=== PATIENT | female | born 1985 | race Caucasian/White ===

== ENCOUNTER 2017-11-06 06:00 | Inpatient (IN) ==
[2017-11-06] MEDS ORDERED: MAG-AL + SIM ORAL LIQUID 30ml PO PRN (06:05)
[2017-11-06] MEDS ORDERED: METHYLERGONOVINE 0.2 MG/ML INJECTION IM PRN (06:05)
[2017-11-06] MEDS ORDERED: ACETAMINOPHEN 500 MG TABLET PO PRN ×2 (06:05→20:54)
[2017-11-06] MEDS ORDERED: CARBOPROST 250 MCG/ML INJECTION IM PRN (06:05)
[2017-11-06] MEDS ORDERED: LIDOCAINE 1% (10mg/ml) 2mL INJ PF SDV ID PRN (06:05)
[2017-11-06] MEDS ORDERED: OXYTOCIN DRIP 30 UNIT/500 ML ML IV PRN (06:05)
[2017-11-06] MEDS ORDERED: CALCIUM CARBONATE Chewable 500mg TABLET PO PRN ×2 (06:05→20:54)
--- OUTSIDE RECORDS SUMMARY | 2017-11-06 06:07 | External Medical Summary | Continuity of Care Document ---
:1985 Author Organization [facility] Address [address] [place], [place] [address] Phone Support Name Relationship Address Phone Santos Barrios spouse [address] [phone] [place] [address] Allergies, Adverse Reactions, Alerts Substance Reaction Severity Status No Known Drug Allergies Unknown Active Medications Medication Instructions Dosage Effective Dates Status Comments (start - stop) butalbital-acetami take 1 - 2 capsule Not Available - Active nophen-caffeine 50 by oral route every mg-300 mg-40 mg 6 hours as needed capsule not to exceed 6 capsules per 24hrs Claritin 10 mg take 1 tablet by 10 MG - Active tablet oral route every day ORAL - Active TABLET Prilosec OTC 20 mg take 1 Capsule by Not Available - Active tablet,delayed Oral route every release day Problems Condition Effective Dates (start - stop) Clinical Status Matern care for oth or susp poor fetl - grth, 2nd tri, unsp 19 weeks gestation of - Pap Smear Screening, Cervix - Encounter for suprvsn of normal - , first trimester 10 weeks gestation of - Oth related conditions, - second trimester Low lying placenta NOS or w/out - hemorrhage, second trimester 19 weeks gestation of - Oth related conditions, - first trimester 11 weeks gestation of - Encounter for suprvsn of normal - , first trimester Matern care for oth or susp poor fetl - grth, 2nd tri, unsp 15 weeks gestation of - OCP Surveillance - Active Procedures Procedure Date Ultrasound exam of preg uterus, complete Results Test Name Date and Time Measure Units Reference Range Abnormal Flag Comments Unknown Advance Directives Directive Yes / No Effective Date File Name Unknown Encounters Encounter Practice Location Reason(s) Diagnoses Date Provider Care Description For Visit Team Members Lloyd [place] Ot May-2 [place] In Womens related conditions, 3-201 Belén. Jessica SCHAFER second trimesterLow 7 700 PO Box lying placenta NOS Medical 1522, or w/out [facility], hemorrhage, second Yosvany Jansen, [email or web address] weeks 120, , gestation of [facility] [place], tel:[phone] , [place]. tel:[phone] Lloyd [place] Matern care for oth May- [place] In Womens Ultrasound or susp poor fetl 3-201 Belén. jax March, 2nd tri, 7 700 PO Box [email or web address] weeks Medical 1522, gestation of [facility], Yosvany Jansen, 120, , [facility] [place], tel:[phone] , [place]. tel:[phone] Lloyd [place] Matern care for oth Apr-2 [place] In Womens or susp poor fetl 4-201 Belén. jax March, 2nd tri, 7 700 PO Box [email or web address] weeks Medical 1522, gestation of [facility], Yosvany Jansen, 120, , [facility] [place], tel:[phone] , [place]. tel: [phone] Lloyd [place] Ot Juan-2 [place] In Womens related conditions, 6-201 Belén. Jessica SCHAFER, first [email or web address] 7 700 PO Box weeks gestation of Medical 1522, pregnancyEncounter [facility], for suprvsn of Yosvany Jansen, normal , 120, , first [facility] [place], tel:[phone] , [place]. tel:[phone] Lloyd [place] Pap Smear Juan-2 [place] In Womens Screening, 0-201 Belén. Jessica SCHAFER CervixAldo for 7 700 PO Box suprvsn of normal Medical 1522, , first [facility], [email or web address] weeks Yosvany Jansen, gestation of 120, , [facility] [place], tel:[phone] , [place]. tel: [phone] Lloyd [place] May- [place] In Womens 2-201 Belén. [facility], 4 700 PO [place] [facility] [address], [address] Desha[place], Yosvany [place], 120, [id number], [facility] [place], tel:[phone] , [place]. tel: [phone] [facility] Aug-0 [place] In Womens 1-201 Belén. [facility] PA, 1 700 PO Box Medical 1522, [address] [place], 120, [id number], [facility] [place], tel:[phone] , [place]. tel: [phone] Family History Family Member Diagnosis Age At Onset No family history of Thrombosis No family history of Ovarian Cancer Mother Hypertension Maternal Grandmother Hypertension Maternal Grandfather Hypertension Maternal Grandmother Melanoma No family history of Breast Cancer No family history of Uterine Cancer Paternal Grandmother Cancer, colon Paternal Grandfather Cancer, colon Immunizations Vaccine Date Status Comments Unknown Payers Payer name Insurance type Covered alliance party ID Authorization(s) [employer] Plan Of [place] - Medicaid MC [id number] Social History Type Description Quantity Date Captured Unknown Vital Signs Date / Height Weight BMI Pulse Blood Temperature Respiratory Body Head BMI Time: Rate Pressure Rate Surface Circumference percentile Area Unknown Chief Complaint And Reason For Visit Unknown Chief Complaint And Reason For Visit Reason For Referral Reason For Referral Unknown Plan Of Care Date Type Action Status Appointment Susanna Barrios BOOKED Future Order: Radiology Order Complete OB Ultrasound > 14 Ordered Weeks ([id number]) Date Type Problem Goal Intervention Status Start Date Unknown. History Of Present Illness Encounter Date Complaint History Of Present Illness This patient has no known history of present illness Functional Status Encounter Date Functional Assessment Cognitive Assessment Unknown Medications Administered Medication Instructions Dosage Effective Dates (start - stop) Status Comments Drug Treatment Unknown Instructions Date Instruction Additional Information exercise indications for ultrasound environmental / work hazards travel tobacco (ask, advise, assess, assist and arrange) alcohol illicit / recreational drugs use of any medications (including supplements, vitamins, herbs, OTC drugs) smoking counseling domestic violence seat belt use HIV and other routine tests risk factors identified by history anticipated course of care nutrition and weight gain counseling, special diet toxoplasmosis precautions (cats / raw meat) genetic testing new ob handbook Zika virus assessment & precautions dentist
--- OUTSIDE RECORDS SUMMARY | 2017-11-06 06:07 | External Medical Summary | Continuity of Care Document ---
:1985 Author Organization [facility] Address [address] [place], [place] [address] Phone Support Name Relationship Address Phone Santos Barrios spouse [address] [phone] [place] [address] Allergies, Adverse Reactions, Alerts Substance Reaction Severity [...] Effective Dates (start - stop) Clinical Status Pap Smear Screening, Cervix - Encounter for suprvsn of normal - , first trimester 10 weeks gestation of - Oth related conditions, - second trimester Low lying placenta NOS or w/out - hemorrhage, second trimester 19 weeks gestation of - Oth related conditions, - first trimester Encounter for suprvsn of normal - , first trimester 11 weeks gestation of - Matern care for oth or susp poor fetl - grth, 2nd tri, unsp 19 weeks gestation of - Matern care for oth or susp poor fetl - grth, 2nd tri, unsp 15 weeks gestation of - Low lying placenta NOS or w/out - hemorrhage, second trimester 23 weeks gestation of - Low Lying Placenta Nos Or W/out - Hemorrhage, Third Trimester 33 weeks gestation of - Low Lying Placenta Nos Or W/out - Hemorrhage, Third Trimester Encounter for suprvsn of normal - , third trimester 30 weeks gestation of - Encounter for suprvsn of normal - , second trimester 27 weeks gestation of - Encounter for suprvsn of normal - , third trimester 33 weeks gestation of - OCP Surveillance - Active Procedures Procedure Date Unknown Results Test Name Date and Time Measure Units Reference Range Abnormal Flag Comments Unknown Advance Directives Directive Yes / No Effective Date File Name Unknown Encounters Encounter Practice Location Reason(s) Diagnoses Date Provider Care Team Description For Visit Members Lloyd [place] Encounter for Nov-2 [place] In Womens suprvsn of normal 9-201 Belén. Jessica SCHAFER, , third 7 700 PO Box [email or web address] weeks Medical 1522, gestation of [facility] Yosvany Jansen, 120, [id number], [facility] [place], tel:[phone] , [place]. tel: [phone] [facility] Low Lying Nov-2 [place] In Womens Ultrasound Placenta Nos Or 9-201 Belén. Jessica SCHAFER, W/out Hemorrhage, 7 700 PO Box Third [email or web address] Medical 1522, weeks gestation [facility] Yosvany Jansen, 120, [id number], [facility] [place], tel:[phone] , [place]. tel: [phone] [facility] Nov-2 [place] In Womens 1-201 Belén. Jessica SCHAFER, 7 700 PO Box Medical 1522, [facility], Yosvany Jansen, 120, [id number], [facility] [place], tel:[phone] , [place]. tel: [phone] [facility] Low Lying Nov-0 [place] Referring In Womens Placenta Nos Or 7-201 Belén. Provider: Health PA, W/out Hemorrhage, 7 700 Belén [place] PO Box Third Medical [place], 700 1522, [facility]te [facility], r for suprvsn of Dr [facility] Dr GU, normal , 120, Yosvany 120, [id number], third [email or web address] Lucas [place], [place], tel: [phone]. , [place]. tel: tel: [phone] Lloyd Zavala Encounter for Oct-1 [place] Referring In Womens suprvsn of normal - Belén. Provider: Jessica SCHAFER, , second 7 700 Belén [place] PO Box [email or web address] weeks Medical [place], 700 1522, gestation of [facility], Dr [facility] Dr GU, 120, Yosvany 120, , [place], [place], tel:[phone]. , [place]. tel: tel: [phone] Lloyd Zavala Low lying Sep-1 [place] In Womens placenta NOS or Belén. Health HANH, w/out hemorrhage, 7 700 PO Box second Medical 1522, [email or web address] weeks [facility], gestation of Yosvany Jansen, 120, , [place], tel:[phone] , [place]. tel: [phone] Lloyd [place] Oth Aug-2 [place] In Womens related - Belén. Health HANH, conditions, 7 700 PO Box second Medical 1522, trimesterLow [facility], lying placenta Yosvany Jansen, NOS or w/out 120, , hemorrhage, [place], second [place], tel: [id number] weeks [phone] gestation of , [place]. tel: [phone] Lloyd [place] Matern care for Aug-2 [place] In Womens Ultrasound oth or susp poor - Belén. Health HANH, fetl grth, 2nd 7 700 PO Box tri, [email or web address] weeks Medical 1522, gestation of [facility], Yosvany Jansen, 120, , [place], [place], tel:[phone] , [place]. tel: [phone] Lloyd [place] Matern care for Yuriy-2 [place] In Womens oth or susp poor 4-201 Belén. Health HANH, fetl grth, 2nd 7 700 PO Box tri, [email or web address] weeks Medical 1522, gestation of [facility], Yosvany Jansen, 120, , [place], tel:[phone] , [place]. tel: [phone] Lloyd [place] Oth Juan-2 [place] In Womens related 6-201 Belén. Health HANH, conditions, first 7 700 PO Box trimesterEncounte Medical 1522, r for suprvsn of [facility], normal , Yosvany Jansen, first [email or web address] 120, [id number], weeks gestation [place], of [place], tel:[phone] , [place]. tel: [phone] Lloyd Z[place] Pap Smear Juna-2 [place] In Womens Screening, 0-201 Belén. Health HANH, CervixEncounter 7 700 PO Box for suprvsn of Medical 1522, normal , [facility], first [email or web address] Yosvany Jansen, weeks gestation 120, , of [facility] [place], tel:[phone] , [place]. tel: [phone] Lloyd Zav[place] Aug-1 [place] In Womens 2-201 Belén. Jessica SCHAFER, 4 700 PO Box Medical 15[address], [address] Ste [place], 120, [id number], [facility] [place], tel:[phone] , [place]. tel: [phone] Lloyd [place] Aug-0 [place] In Womens 1-201 Belén. Jessica SCHAFER, 1 700 PO Box Medical 1522, [address], Ste [place], 120, [id number], [facility] [place], tel:[phone] , [place]. tel: [phone] Family History Family Member Diagnosis Age At Onset No family history of Thrombosis No family history of Ovarian Cancer Mother Hypertension Maternal Grandmother Hypertension Maternal Grandfather Hypertension Maternal Grandmother Melanoma No family history of Breast Cancer No family history of Uterine Cancer Paternal Grandmother Cancer, colon Paternal Grandfather Cancer, colon Immunizations Vaccine Date Status Comments Tdap completed Source: New Immunization Record Influenza, injectable, completed Source: New Immunization Record quadrivalent, preservative free, 3 yrs or older Payers Payer name Insurance type Covered constitution party ID Authorization(s) [employer] [place] - Medicaid MC [id number] [employer] [place] - Medicaid MC [id number] [employer] [place] - Medicaid MC [id number] Social History Type Description Quantity Date Captured Unknown Vital Signs Date / Height Weight BMI Pulse Blood Temperature Respiratory Body Head BMI Time: Rate Pressure Rate Surface Circumference percentile Area Unknown Chief Complaint And Reason For Visit Unknown Chief Complaint And Reason For Visit Reason For Referral Reason For Referral Unknown Plan Of Care Date Type Action Status Appointment Susanna Barrios BOOKED Appointment Susanna Barrios BOOKED Appointment Susanna Barrios BOOKED Appointment Susanna Barrios BOOKED Appointment Susanna Barrios BOOKED Future Order: Radiology Order Complete OB Ultrasound > 14 Ordered Weeks ([id number]) Future Order: Radiology Order Ultrasound OB Follow-up ([id number]) Ordered Date Type Problem Goal Intervention Status Start Date Unknown. History Of Present Illness Encounter Date Complaint History Of Present Illness This patient has no known history of present illness Functional Status Encounter Date Functional Assessment Cognitive Assessment Unknown Medications Administered Medication Instructions Dosage Effective Dates (start - stop) Status Comments Drug Treatment Unknown Instructions Date Instruction Additional Information gestational glucose lab screening exercise indications for ultrasound environmental / work hazards travel tobacco (ask, advise, assess, assist and arrange) alcohol illicit / recreational drugs use of any medications (including supplements, vitamins, herbs, OTC drugs) smoking counseling domestic violence seat belt use genetic testing new ob handbook Zika virus assessment & precautions dentist HIV and other routine tests risk factors identified by history anticipated course of care nutrition and weight gain counseling, special diet toxoplasmosis precautions (cats / raw meat)
--- OUTSIDE RECORDS SUMMARY | 2017-11-06 06:08 | External Medical Summary | Continuity of Care Document ---
:1985 Author Organization [facility] Address [address] [place], [place] [address] Phone Support Name Relationship Address Phone Santos Barrios spouse [address] [phone] [place] [address] Allergies, Adverse Reactions, Alerts Substance Reaction Severity [...] Effective Dates (start - stop) Clinical Status Low Lying Placenta Nos Or W/out - Hemorrhage, Third Trimester 33 weeks gestation of - Pap Smear Screening, [...] tri, unsp 15 weeks gestation of - Maternal care for excess growth, - third trimester, unsp Encounter for suprvsn of normal - , third trimester 35 weeks gestation of - Low lying placenta NOS or w/out - hemorrhage, second trimester 23 weeks gestation of - Low Lying Placenta Nos Or W/out - Hemorrhage, Third Trimester Encounter for suprvsn of normal - , third trimester 30 weeks gestation of - 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 - complicating 36 weeks gestation of - Encounter for suprvsn of normal - , second trimester 27 weeks gestation of - Encounter for suprvsn of normal - , third trimester 33 weeks gestation of - OCP Surveillance - Active Procedures Procedure Date Ultrasnd preg uterus, flwup/repeat Results Test Name Date and Time Measure Units Reference Range Abnormal Flag Comments Unknown Advance Directives Directive Yes / No Effective Date File Name Unknown Encounters Encounter Practice Location Reason(s) Diagnoses Date Provider Care Team Description For Visit Members Lloyd Zavala Streptococcus B Dec-2 [place] In Womens carrier state 0-201 Belén. [facility], complicating 7 700 PO Box [email or web address] weeks Medical 1522, gestation of [facility], Yosvany Jansen [place], 120, [id number], [place], tel:[phone] , [place]. tel: [phone] Lloyd Zavala Maternal care for Dec-1 [place] In Womens excess 5-201 Belén. Health PA, growth, third 7 700 PO Box trimester, Medical 1522, unspEncounter for [facility], suprvsn of normal Yosvany Jansen, , third 120, [id number], [email or web address] weeks [place], gestation of [place], tel: [phone] , [place]. tel: [phone] Lloyd [place] Encounter for Nov-2 [place] In Womens suprvsn of normal 9-201 Belén. Health [facility], , third 7 700 PO Box [email or web address] weeks Medical 1522, gestation of [facility] Yosvany Jansen, 120, [id number], [place], tel: [phone] , [place]. tel: [phone] [facility] Low Lying Nov-2 [place] In Womens Ultrasound Placenta Nos Or 9-201 Belén. Health PA, W/out Hemorrhage, 7 700 PO Box Third [id number] Medical 1522, weeks gestation [facility], of Yosvany Jansen, 120, [id number], [place], tel:[phone] , [place]. tel: [phone] [facility] Nov-2 [place] In Womens 1-201 Belén. Health PA, 7 700 PO Box Medical 1522, [facility], Yosvany Jansen, 120, , [place], tel:[phone] , [place]. tel: [phone] [facility] Low Lying Nov-0 Qu[place] Referring In Womens Placenta Nos Or 7-201 Belén. Provider: Health PA, W/out Hemorrhage, 7 700 Belén Quiñonez PO Box Third Medical [place], 700 1522, TrimesterEncounte [facility], r for suprvsn of Yosvany Jansen [address] GU, normal , 120, Yosvany 120, [id number], third [email or web address] Lucas [place], [place] weeks gestation [place], [place], tel: of [phone]. , [place]. tel: tel: [phone] Associates [facility] Encounter for Oct-1 Qu[place] Referring In Womens suprvsn of normal 7-201 Belén. Provider: Health PA, , second 7 700 Belén Qu[place] PO Box [email or web address] weeks Medical [place], 700 1522, gestation of [facility], , [facility] Dr GU, 120, Yosvany 120, [id number], Lucas [place], [place], [place], tel:[phone]. , [place]. tel: tel: [phone] [facility] Low lying Sep-1 [place] In Womens placenta NOS or 9-201 Belén. Health PA, w/out hemorrhage, 7 700 PO Box second Medical 1522, [email or web address] weeks [facility], gestation of Yosvany Jansen, 120, , [place], tel: [phone] , [place]. tel: [phone] Associates [facility] Ot Aug-2 [place] In Womens related 3-201 Belén. Health PA, conditions, 7 700 PO Box second Medical 1522, trimesterLow [facility], lying placenta Yosvany Jansen, NOS or w/out 120, , hemorrhage, [place], second [place], tel: [email or web address] weeks gestation of , [place]. tel: [phone] [facility] Matern care for Aug-2 [place] In Womens Ultrasound oth or susp poor 3-201 Belén. Health HANH, fetl grth, 2nd 7 700 PO Box tri, [email or web address] weeks Medical 1522, gestation of [facility], Yosvany Jansen, 120, , [place], tel: [phone] , [place]. tel: [phone] [facility] Matern care for Yuriy-2 [place] In Womens oth or susp poor 4-201 Belén. Health HANH, fetl grth, 2nd 7 700 PO Box tri, [email or web address] weeks Medical 1522, gestation of [facility], Yosvany Jansen, 120, [id number], [place], tel:[phone] , [place]. tel: [phone] Associates [facility] Ot Juan-2 [place] In Womens related 6-201 Belén. Health PA, conditions, first 7 700 PO Box trimesterEncounte Medical 1522, r for suprvsn of [facility], normal , Yosvany Jansen, first [email or web address] 120, [id number], weeks gestation [place], [place] of [place], tel:[phone] , [place]. tel: [phone] Lloyd [place] Pap Smear Juan- Qu[place] In Womens Screening, 0-201 Belén. Health PA, CervixEncounter 7 700 PO Box for suprvsn of Medical 1522, normal , [facility], first [email or web address] , Yosvany GU, weeks gestation 120, , of [place], tel:[phone] , [place]. tel: [phone] Lloyd [place] May- Quiñonez In Womens 2-201 Belén. Health PA, 4 700 PO Box Medical 1522, [address] Deshaun, Y[place]vany [place], 120, [id number], [facility] [place], tel:[phone] , [place]. tel: [phone] Lloyd [place] May- Qiuñonez In Womens 1-201 Belén. Health HANH, 1 700 PO Box Medical 1522, [address] Deshaun, Yosvany [place], 120, [id number], [facility] [place], tel:[phone] , [place]. tel: [phone] Family History Family Member Diagnosis Age At [...] older Payers Payer name Insurance type Covered alliance party ID Authorization(s) [employer] [place] - Medicaid MC [id number] [employer] [place] - Medicaid MC [id number] [employer] [place] - Medicaid MC [id number] Social History Type Description Quantity Date Captured [...] Susanna Barrios BOOKED Future Order: Radiology Order Ultrasound OB Follow-up ([id number]) Ordered Future Order: Radiology Order Complete OB Ultrasound > 14 Ordered Weeks ([id number]) Date Type Problem Goal Intervention Status Start Date Unknown. History Of Present Illness Encounter Date Complaint History Of Present Illness This patient has no known history of present illness Functional Status Encounter Date Functional Assessment Cognitive Assessment Unknown Medications Administered Medication Instructions Dosage Effective Dates (start - stop) Status Comments Drug Treatment Unknown Instructions Date Instruction Additional Information labor signs group B strep screening gestational glucose lab screening exercise indications for [...]
--- OUTSIDE RECORDS SUMMARY | 2017-11-06 06:08 | External Medical Summary | Continuity of Care Document ---
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 - complicating Encounter for suprvsn of normal - , third trimester 38 weeks gestation of - Encounter for suprvsn of normal - , second trimester 27 weeks gestation of - Encounter for suprvsn of normal - , third trimester 37 weeks gestation of - Encounter for suprvsn of normal - , third trimester 33 weeks gestation of - OCP Surveillance - Active Procedures Procedure Date OB Visit No Charge Results Test Name Date and Time Measure Units Reference Range Abnormal Flag Comments Panel Description: STREPTOCOCCUS, GROUP B CULTURE STREPTOCOCCUS, GROUP SEE NOTE A STREPTOCOCCUS, GROUP B CULTURE B CULTURE 10:58:00 MICRO NUMBER: [id number] TEST STATUS: FINAL SPECIMEN SOURCE: VAGINAL/ANORECTAL SPECIMEN QUALITY: ADEQUATE RESULT: Group B Streptococcus isolated Beta-hemolytic Streptococci are predictably susceptible to penicillin and other beta-lactams. Susceptibility testing not routinely performed.REPORT COMMENT:FASTING:UNKNOWNTest performed at [employer] [id number] [place] [address]Nudbnacg: ISABELLE GUY DO,MPH Advance Directives Directive Yes / No Effective Date File Name Unknown Encounters Encounter Practice Location Reason(s) Diagnoses Date Provider Care Team Description For Visit Members Lloyd Lan Joaquim-0 [place] In Womens carrier state 2-201 [facility]. [facility], complicating 8 700 PO Box pregnancyEncounte Medical 1522, r for suprvsn of [facility], normal , Yosvany Jansen, third [email or web address] 120, [id number], weeks gestation [place], tel:[phone] , [place]. tel: [phone] [facility] [place] Encounter for Dec-2 [place] In Womens suprvsn of normal 9-201 Bel[facility]. [facility] HANH, , third 7 700 PO Box [email or web address] weeks Medical 1522, gestation of [facility], Yosvany Jansen, 120, , [place], tel:[phone] , [place]. tel: [phone] [facility] [place] Streptococcus B Dec-2 [place] In Womens carrier state 0-201 [facility]. [facility] HANH, complicating 7 700 PO Box weeks Medical 1522, gestation of [facility], Yosvany Jansen, 120, , [place], tel:[phone] , [place]. tel: [phone] [facility] [place] Maternal care for Dec-1 [place] In Womens excess 5-201 [facility]. [facility] HANH, growth, third 7 700 PO Box trimester, Medical 1522, unspEncounter for [facility], suprvsn of normal Y[place]vany Jansen, , third 120, , [email or web address] weeks [place], [place] gestation of [place], tel:[phone] , [place]. tel: [phone] [facility] [place] Encounter for Nov-2 [place] In Womens suprvsn of normal 9-201 [facility]. [facility] HANH, , third 7 700 PO Box [email or web address] weeks Medical 1522, gestation of [facility], Yosvany Jansen, 120, [id number], [place], tel:[phone] , [place]. tel:[phone] Lloyd [place] Low Lying Nov-2 [place] In Womens Ultrasound Placenta Nos Or 9-201 [facility]. [facility] HANH, W/out Hemorrhage, 7 700 PO Box Third [id number] Medical 1522, weeks gestation [facility], of [place]osvany Jansen, 120, [id number], [place], tel: [phone] , [place]. tel: [phone] Lloyd [place] Nov-2 [place] In Womens 1-201 [facility], 7 700 PO Box Medical 1522, [place], Yosvany Jansen, 120, [id number], [place], tel: [phone] , [place]. tel: [phone] [facility] [place] Low Lying Nov-0 [place] Referring In Womens Placenta Nos Or 7-201 Belén. Provider: Health PA, W/out Hemorrhage, 7 700 Belén [place] PO Box Third Medical K, 700 1522, TrimesterEncounte [facility], r for suprvsn of , [facility] [address] GU, normal , 120, Yosvany 120, [id number], third [place], weeks gestation RICCARDO, RICCARDO, tel: of [phone]. , [place]. tel: tel: [phone] [facility] [place] Encounter for Oct-1 [place] Referring In Womens suprvsn of normal 7-201 Belén. Provider: Health HANH, , second 7 700 Belén [place] PO Box [email or web address] weeks Medical K, 700 1522, gestation of [facility], Dr [facility] [address] GU, 120, Yosvany 120, [id number], [place], [place], tel: [phone]. , [place]. tel: tel: [phone] [facility] [place] Low lying Sep-1 [place] In Womens placenta NOS or 9-201 [facility]. [facility] HANH, w/out hemorrhage, 7 700 PO Box second Medical 1522, [email or web address] weeks [facility], gestation of Yosvany Jansen, 120, [id number], [place], tel:[phone] , [place]. tel: [phone] Lloyd [place] Oth Aug-2 [place] In Womens related 3-201 [facility]. [facility], conditions, 7 700 PO Box second Medical 1522, trimesterLow [facility], lying placenta Yosvany Jansen, NOS or w/out 120, , hemorrhage, [place], second [place], tel:+ [id number] weeks gestation of , [place]. tel: [phone] [facility] [place] Matern care for May-2 [place] In Womens Ultrasound oth or susp poor 3-201 [facility]. [facility], fetl grth, 2nd 7 700 PO Box tri, [email or web address] weeks Medical 1522, gestation of [facility], Yosvany Jansen, 120, , [place], [place], tel:[phone] , [place]. tel: [phone] [facility] [place] Matern care for Apr-2 [place] In Womens oth or susp poor 4-201 [facility]. [facility], fetl grth, 2nd 7 700 PO Box tri, [email or web address] weeks Medical 1522, gestation of [facility], Yosvany Jansen, 120, , [place], [place], tel:[phone] , [place]. tel: [phone] [facility] [place] Oth Juan-2 [place] In Womens related 6-201 [facility]. [facility], conditions, first 7 700 PO Box trimesterEncounte Medical 1522, r for suprvsn of [facility], normal , Yosvany Jansen, first [id number] 120, [id number], weeks gestation [place], of [place], tel:[phone] , [place]. tel: [phone] [facility] [place] Pap Smear Juan-2 [place] In Womens Screening, 0-201 [facility]. [facility], CervixEncounter 7 700 PO Box for suprvsn of Medical 1522, normal , [facility], first [id number] [place] Jansen, weeks gestation 120, [id number], of [place], tel:[phone] , [place]. tel: [phone] Lloyd [place] Aug-1 [place] In Womens 2-201 [facility]. [facility], 4 700 PO Box Medical 1522, [address] [address] Des[place], [place], 120, [id number], [facility] [place], tel:[phone] , [place]. tel: [phone] [facility] Quiñonez In Womens 1-201 Belén. [employer] [facility], 1 700 PO Box Medical 1522, [address] Desha[place], [place], 120, [id number], [facility] [place], tel:[phone] , [place]. tel: [phone] Family History Family Member Diagnosis Age At [...] older Payers Payer name Insurance type Covered democrat ID Authorization(s) [employer] [place] Medicaid MC [id number] [place] Medicaid MC [id number] [place] Medicaid MC [id number] Social History Type Description Quantity Date Captured Alcohol Use Details No Caffeine Use Details Unknown Tobacco Use Status Unknown Smoking Status Never smoker Vital Signs Date / Height Weight BMI Pulse Blood Temperature Respiratory Body Head BMI Time: Rate Pressure Rate Surface Circumference percentile Area 203.40 39.0 133/85 2017 lbs 7 mm[Hg] 10:31 kg/m AM eter (2) Chief Complaint And Reason For Visit Unknown Chief Complaint And Reason For Visit Reason For Referral Reason For Referral Unknown Plan Of Care Date Type Action Status Appointment Susanna Barrios BOOKED Appointment Susanna Barrios BOOKED Future Order: Radiology Order Complete OB Ultrasound > 14 Ordered Weeks ([id number]) Future Order: Radiology Order Ultrasound OB Follow-up ([id number]) Ordered Date Type Problem Goal Intervention Status [...]
--- OUTSIDE RECORDS SUMMARY | 2017-11-06 06:08 | External Medical Summary | Continuity of Care Document ---
:1983 Author Organization [facility] Address [address] [place], [place] [address] Phone Support Name Relationship Address Phone Santos Barrios spouse [address] [phone] [place] [address] Allergies, Adverse Reactions, Alerts Substance Reaction Severity [...] Team Description For Visit Members Lloyd [place] Maternal care for Sep- U[place] In Womens excess 5-201 [facility]. [facility] HANH, growth, third 7 700 PO Box trimester, Medical 1522, unspEncounter for [facility], [facility] normal [place] Jansen, , third 120, [id number], [id number] weeks [place], gestation of [place], tel:[phone] , [place]. tel: [phone] Lloyd [place] Encounter for Nov-2 [place] In Womens suprvsn of normal 9-201 Bel[facility]. Health HANH, , third 7 700 PO Box [email or web address] weeks Medical 1522, gestation of [facility], Yosvany Jansen, 120, [id number], [place], tel:[phone] , [place]. tel:[phone] Lloyd [place] Low Lying Nov-2 [place] In Womens Ultrasound Placenta Nos Or 9-201 Bel[facility]. Health HANH, W/out Hemorrhage, 7 700 PO Box Third [id number] Medical 1522, weeks gestation [facility], of Yosvany Jansen, 120, [id number], [place], tel: [phone] , [place]. tel: [phone] Lloyd [place] Nov-2 [place] In Womens 8-201 [facility]. [facility], 7 700 PO Box Medical 1522, [address] [place], [place], 120, [id number], [place], tel: [phone] , [place]. tel: [phone] Lloyd [place] Nov-2 [place] In Womens 1-201 [facility]. [facility], 7 700 PO Box Medical 1522, [address] [place] [place], 120, [id number], [place], tel:[phone] , [place]. tel: [phone] Lloyd [place] Low Lying Nov-0 [place] Referring In Womens Placenta Nos Or 7-201 Belén. Provider: Health HANH, W/out Hemorrhage, 7 700 Belén [place] PO Box Third Medical K, 700 1522, TrimesterEncounte [facility], r for suprvsn of , [facility] [address] GU, normal , 120, Yosvany 120, [id number], third [id number] [place], weeks gestation RICCARDO, RICCARDO, tel: of [phone]. , [place]. tel: tel: [phone] Lloyd [place] Encounter for Oct-1 [place] Referring In Womens suprvsn of normal 7-201 Belén. Provider: Health HANH, , second 7 700 Belén [place] PO Box [email or web address] weeks Medical K, 700 1522, gestation of [facility], , [facility] [address] GU, 120, Y[place]vany 120, [id number], [place], [place], tel: [phone]. , [place]. tel: tel: [phone] Lloyd [place] Low lying Sep-1 [place] In Womens placenta NOS or 9-201 [facility]. [facility] PA, w/out hemorrhage, 7 700 PO Box second Medical 1522, [id number] weeks [facility], gestation of Yosvany Jansen, 120, , [place], tel:[phone] , [place]. tel: [phone] [facility] [place] Ot Aug-2 [place] In Womens related 3-201 [facility]. [facility] PA, conditions, 7 700 PO Box second Medical 1522, trimesterLow [facility], lying placenta Yosvany Jansen, NOS or w/out 120, , hemorrhage, [place], second [place], tel:[phone] [email or web address] weeks gestation of , [place]. tel: [phone] [facility] [place] Matern care for Aug-2 [place] In Womens Ultrasound oth or susp poor 3-201 Bel[facility]. Health HANH, fetl grth, 2nd 7 700 PO Box tri, [email or web address] weeks Medical 1522, gestation of [facility], Yosvany Jansen, 120, , [place], tel:[phone] , [place]. tel: [phone] Lloyd [place] Matern care for Yuriy-2 [place] In Womens oth or susp poor 4-201 Bel[facility]. Health HANH, fetl grth, 2nd 7 700 PO Box tri, [email or web address] weeks Medical 1522, gestation of [facility], Yosvany Jansen, 120, , [place], [place], tel:[phone] , [place]. tel: [phone] [facility] [place] Ot Juan-2 [place] In Womens related 6-201 Bel[facility]. Health HANH, conditions, first 7 700 PO Box trimesterEncounte Medical 1522, r for suprvsn of [facility], normal , Y[place]any Jansen, first [id number] 120, [id number], weeks gestation [place], of [place], tel:[phone] , [place]. tel:[phone] Lloyd [place] Pap Smear Juan-2 [place] In Womens Screening, 0-201 Belén. Health HANH, CervixEncounter 7 700 PO Box for suprvsn of Medical 1522, normal , [facility], first [email or web address] [place] Jansen, weeks gestation 120, [id number], [facility] [place], tel:[phone] , [place]. tel: [phone] Lloyd [place] May- Qu[place] In Womens 2-201 Bel[facility]. [facility] PA, 4 700 PO Box Medical 1522, [address] [place], 120, [id number], [facility] [place], tel:[phone] , [place]. tel: [phone] [facility] Aug-0 [place] In Womens 1-201 Bel[facility]. [facility], 1 700 PO Box Medical 1522, [address] [place], 120, [id number], [facility] [place], tel:[phone] , [place]. tel: [phone] Family History Family Member Diagnosis Age At [...] [employer] Medicaid MC [id number] [place] Medicaid MC [id number] [place] Medicaid MC [id number] Social History Type Description Quantity Date Captured [...] Complete OB Ultrasound > 14 Ordered Weeks ([id number]) Future Order: Radiology Order Ultrasound OB Follow-up ([id number]) Ordered Date Type Problem Goal Intervention Status [...]
--- OUTSIDE RECORDS SUMMARY | 2017-11-06 06:08 | External Medical Summary | Continuity of Care Document ---
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 [facility], complicating 7 700 PO Box [id number] weeks Medical 1522, gestation of [facility], Yosvany Jansen, 120, , [facility], tel:[phone] , [place]. tel: [phone] Lloyd [place] Maternal care for Dec-1 [place] In Womens excess 5-201 Bel[facility]. [facility], growth, third 7 700 PO Box trimester, Medical 1522, unspEncounter for [facility], suprvsn of normal Y[place]vany Jansen, , third 120, [id number], [id number] weeks [facility] gestation of [place], tel:[phone] , [place]. tel: [phone] Lloyd [place] Encounter for Nov-2 [place] In Womens suprvsn of normal 9-201 [facility]. [facility], , third 7 700 PO Box [email or web address] weeks Medical 1522, gestation of [facility] Yosvany Jansen, 120, [id number], [place], tel: [phone] , [place]. tel: [phone] [facility] [place] Low Lying Nov-2 [place] In Womens Ultrasound Placenta Nos Or 9-201 Bel[facility]. [facility], W/out Hemorrhage, 7 700 PO Box Third [id number] Medical 1522, weeks gestation [facility], of Yosvany Jansen, 120, [id number], [place], tel:[phone] , [place]. tel: [phone] [facility] [place] Nov-2 [place] In Womens 1-201 [facility]. [facility], 7 700 PO Box Medical 1522, [facility], Yosvany Jansen, 120, , [place], [place], tel:[phone] , [place]. tel: [phone] [facility] [place] Low Lying Nov-0 [place] Referring In Womens Placenta Nos Or 7-201 Belén. Provider: Health PA, W/out Hemorrhage, 7 700 Belén [place] PO Box Third Medical K, 700 1522, TrimesterEncounte [facility], r for suprvsn of Yosvany J[address] [place] [address] GU, normal , 120, [place] 120, [id number], third [id number] [place], [place] weeks gestation RICCARDO, RICCARDO, tel: of [phone]. , [place]. tel: tel: [phone] [facility] [place] Encounter for Oct-1 [place] Referring In Womens suprvsn of normal 7-201 Belén. Provider: Health PA, , second 7 700 Belén Qu[place] PO Box [id number] weeks Medical K, 700 1522, gestation of [facility], , [facility] Dr GU, 120, [place] 120, [id number], [place], [place] RICCARDO, RICCARDO, tel:[phone]. , [place]. tel: tel: [phone] [facility] [place] Low lying Sep-1 [place] In Womens placenta NOS or 9-201 Bel[facility]. [facility] PA, w/out hemorrhage, 7 700 PO Box second Medical 1522, [email or web address] weeks [facility], gestation of Y[place] Jansen, 120, , [place], [place], tel: [phone] , [place]. tel: [phone] [facility] [place] Ot Aug-2 [place] In Womens related 3-201 Bel[facility]. Health PA, conditions, 7 700 PO Box second Medical 1522, trimesterLow [facility], lying placenta Y[place]any Jansen, NOS or w/out 120, , hemorrhage, [place], second [place], tel: [id number] weeks gestation of , [place]. tel: [phone] [facility] [place] Matern care for Aug-2 [place] In Womens Ultrasound oth or susp poor 3-201 Belné. Health HANH, fetl grth, 2nd 7 700 PO Box tri, [email or web address] weeks Medical 1522, gestation of [facility], Yosvany Jansen, 120, , [place], tel: [phone] , [place]. tel: [phone] [facility] [place] Matern care for Yuriy-2 [place] In Womens oth or susp poor 4-201 Belén. Health HANH, fetl grth, 2nd 7 700 PO Box tri, [email or web address] weeks Medical 1522, gestation of [facility], Yosvany Jansen, 120, [id number], [place], tel:[phone] , [place]. tel: [phone] [facility] [place] Ot Juan-2 [place] In Womens related 6-201 Belén. Health PA, conditions, first 7 700 PO Box trimesterEncounte Medical 1522, r for suprvsn of [facility], normal , [place] Jansen, first [email or web address] 120, [id number], weeks gestation [place], [place] of [place], tel:[phone] , [place]. tel: [phone] Lloyd [place] Pap Smear Mar- Qu[place] In Womens Screening, 0-201 Belén. Health PA, CervixEncounter 7 700 PO Box for suprvsn of Medical 1522, normal , [place], first [email or web address] , [place], weeks gestation 120, [id number], of [facility] [place], tel:[phone] , [place]. tel: [phone] Lloyd [place] May- Qu[place] In Womens 2-201 Belén. Health PA, 4 700 PO Box Medical 1522, [address] Des[place], [place], 120, [id number], [facility] [place], tel:[phone] , [place]. tel: [phone] Lloyd [place] May- Quiñonez In Womens 1-201 Belén. Jessica SCHAFER, 1 700 PO Box Medical 1522, [address] [place], [place], 120, [id number], [facility] [place], tel:[phone] , [place]. tel: [phone] Family History Family Member Diagnosis Age At [...] [employer] Medicaid MC [id number] [place] Medicaid MC [id number] [place] Medicaid MC [id number] Social History Type Description Quantity Date Captured Alcohol Use Details No Caffeine Use Details Unknown Tobacco Use Status Unknown Smoking Status Never smoker Vital Signs Date / Height Weight BMI Pulse Blood Temperature Respiratory Body Head BMI Time: Rate Pressure Rate Surface Circumference percentile Area 199.60 38.3 lbs 4 mm[Hg] 3:40 kg/m PM eter (2) Chief Complaint And Reason For Visit Unknown Chief Complaint And Reason For Visit Reason For Referral Reason For Referral Unknown Plan Of Care Date Type Action Status Appointment Susanna Barrios BOOKED Appointment Susanna Barrios BOOKED Appointment Susanna Barrios BOOKED Future Order: Radiology Order Complete OB Ultrasound > 14 Ordered Weeks ([id number]) Future Order: Radiology Order Ultrasound OB Follow-up ([id number]) Ordered Date Type Problem Goal Intervention Status [...]
--- OUTSIDE RECORDS SUMMARY | 2017-11-06 06:08 | External Medical Summary | Continuity of Care Document ---
:1985 Author Organization [facility] Address [address] [place], [place] [address] Phone Support Name Relationship Address Phone Santos Barrios spouse [address] [phone] [place] [address] Allergies, Adverse Reactions, Alerts Substance Reaction Severity [...] third trimester 30 weeks gestation of - Pap Smear Screening, [...] second trimester 23 weeks gestation of - Encounter for suprvsn of normal - , second trimester 27 weeks gestation of - OCP Surveillance - Active Procedures Procedure Date Immuniz admnin, 1 vac, sngl/combo 19 Yrs + TDAP VACCINE >7 IM OB Visit No Charge Results Test Name Date and Time Measure Units Reference Range Abnormal Flag Comments Unknown Advance Directives Directive Yes / No Effective Date File Name Unknown Encounters Encounter Practice Location Reason(s) Diagnoses Date Provider Care Team Description For Visit Members Lloyd [place] Nov-2 Qu[place] In Womens 1-201 Belén. Jessica SCHAFER, 7 700 [address], [place] [address] Deshaun, [facility] RICCARDO, 120, [id number], [place], tel: [phone] , [place]. tel: [phone] Lloyd [place] Low Lying Nov-0 Quiñonez Referring In Womens Placenta Nos Or 7-201 Belén. Provider: Jessica SCHAFER, W/out Hemorrhage, 7 700 Belén Quiñonez PO Box Third Medical K, 700 1522, [facility] Deshaun, for suprvsn of Dr, [facility] Dr GU, normal , 120, Yosvany 120, [id number], third [email or web address] Lucas [place], weeks gestation RICCARDO GU, tel: of [phone]. , [place]. tel: tel: [phone] Llyod [place] Encounter for Oct-1 Quiñone[place] Referring In Womens suprvsn of normal 7-201 Belén. Provider: Jessica SCHAFER, , second 7 700 Belén Qu[place]ñonez PO Box [email or web address] weeks Medical K, 700 1522, gestation of [place] Shankar [place], , [facility] Dr GU, 120, Yosvany 120, [id number], [place], [place], tel: [phone]. , [place]. tel: tel: [phone] Lloyd [place] Low lying Sep-1 [place] In Womens placenta NOS or 9- Belén. Health [place], w/out hemorrhage, 7 700 PO Box second Medical 1522, [email or web address] weeks [facility], gestation of Yosvany Jansen, 120, , [place], tel: [phone] , [place]. tel: [phone] Associates Lucas Ot Aug-2 [place] In Womens related 3- Belén. Health [place], conditions, 7 700 PO Box second Medical 1522, trimesterLow [facility], lying placenta Yosvany Jansen, NOS or w/out 120, , hemorrhage, [place], second [place], tel: [id number] weeks gestation of , [place]. tel: [phone] Lloyd [place] Matern care for Aug-2 [place] In Womens Ultrasound oth or susp poor 3-201 Belén. Health HANH, fetl grth, 2nd 7 700 PO Box tri, [email or web address] weeks Medical 1522, gestation of [facility], Yosvnay Jansen, 120, , [place], tel: [phone] , [place]. tel: [phone] Lloyd [place] Matern care for Yuriy-2 [place] In Womens oth or susp poor 4- Belén. Health [place], fetl grth, 2nd 7 700 PO Box tri, [email or web address] weeks Medical 1522, gestation of [facility], Yosvany Jansen, 120, , [place], [place], tel: [phone] , [place]. tel: [phone] Lloyd [place] Ot Juan-2 Qu[place] In Womens related 6- Belén. Health [place], conditions, first 7 700 PO Box trimesterEncounte Medical 1522, r for suprvsn of [facility], normal , Yosvany Jansen, first [email or web address] 120, [id number], weeks gestation [place], of [place], tel:[phone] , [place]. tel: [phone] Lloyd [place] Pap Smear Juan- Qu[place] In Womens Screening, 0-201 Belén. Health HANH, CervixEncounter 7 700 PO Box for suprvsn of Medical 1522, normal , [place] Deshaun, first [email or web address] , Yosvany GU, weeks gestation 120, [id number], of [place], [place], tel:[phone] , [place]. tel: [phone] Lloyd [place] May- Qu[place]ñone[place] In Womens 2-201 Belén. Health HANH, 4 700 [address] Medical [address], [place] [address] Deshaun, Yosvany GU, 120, [id number], [facility] [place], tel:[phone] , [place]. tel: [phone] Lloyd [place] May-0 Qu[place] In Womens 1-201 Belén. Jessica SCHAFER, 1 700 [address] Medical [address], [place] [address] Deshaun, Yovsany GU, 120, [id number], [facility] [place], tel:[phone] , [place]. tel: [phone] Family History Family Member Diagnosis Age At [...] older Payers Payer name Insurance type Covered republican ID Authorization(s) [employer] [place] - Medicaid MC [id number] [place] - Medicaid MC [id number] [place] [place] - Medicaid MC [id number] Social History Type Description Quantity Date Captured Alcohol Use Details No Caffeine Use Details coffee 1 cup per day Tobacco Use Status Never smoked tobacco Smoking Status Never smoker Vital Signs Date / Height Weight BMI Pulse Blood Temperature Respiratory Body Head BMI Time: Rate Pressure Rate Surface Circumference percentile Area 195.20 37.4 124/85 2017 lbs 9 mm[Hg] 11:28 kg/m AM eter (2) Chief Complaint And Reason For Visit Unknown Chief Complaint And Reason For Visit Reason For Referral Reason For Referral Unknown Plan Of Care Date Type Action Status Appointment Susanna Barrios BOOKED Appointment Susanna Barrios BOOKED Future Order: Radiology Order Complete OB Ultrasound > 14 Ordered Weeks (30117) Date Type Problem Goal Intervention Status Start [...]
--- OUTSIDE RECORDS SUMMARY | 2017-11-06 06:08 | External Medical Summary | Continuity of Care Document ---
:1985 Author Organization [id number] Address [address] [place], [place] [address] Phone Support Name Relationship Address Phone Santos Barrios spouse [address] [phone] [place] [address] Allergies, Adverse Reactions, Alerts Substance Reaction Severity [...] Dates (start - stop) Clinical Status Low lying placenta NOS or w/out - hemorrhage, second trimester 23 weeks gestation of - Pap Smear Screening, [...] for oth or susp poor fetl - grsilvia, 2nd tri, unsp 15 weeks gestation of - OCP Surveillance - Active Procedures Procedure Date OB Visit No Charge Results Test Name Date and Time Measure Units Reference Range Abnormal Flag Comments Unknown Advance Directives Directive Yes / No Effective Date File Name Unknown Encounters Encounter Practice Location Reason(s) Diagnoses Date Provider Care Description For Visit Team Members Associates Lucas Low lying placenta Jun- Quiñone[place] In Womens NOS or w/out 9-201 Belén. Jessica SCHAFER hemorrhage, second 7 700 PO Box [email or web address] weeks Medical 1522, gestation of [facility] Yosvany Jansen, 120, , [facility] [place], tel:[phone] , [place]. tel:[phone] Lloyd [place] Ot May-2 Quiñone[place] In Womens related conditions, 3- Belén. Jessica SCHAFER, second trimesterLow 7 700 PO Box lying placenta NOS Medical 1522, or w/out [facility], hemorrhage, second Yosvany Jansen, [email or web address] weeks 120, [id number], gestation of [facility] [place], tel:[phone] , [place]. tel: [phone] Lloyd [place] Matern care for oth May- Qu[place] In Womens Ultrasound or susp poor fetl 3-201 Belén. jax March, 2nd tri, 7 700 PO Box [email or web address] weeks Medical 1522, gestation of [facility], Yosvany Jansen, 120, [id number], [facility] [place], tel:[phone] , [place]. tel: [phone] Lloyd [place] Matern care for oth Apr- Qu[place]ñone[place] In Womens or susp poor fetl 4-201 Belén. jax March, 2nd tri, 7 700 PO Box [email or web address] weeks Medical 1522, gestation of [facility] Yosvany Jansen, 120, [id number], [facility] [place], tel:[phone] , [place]. tel: [phone] Lloyd [place] Ot Juan-2 Qu[place]ñone[place] In Womens related conditions, 6-201 Belén. Health [place], first 7 700 PO [facility], for suprvsn [facility], normal , Yosvany Jansen, first [email or web address] 120, [id number], weeks gestation of [place], [place], tel:[phone] , [place]. tel: [phone] Lloyd [place] Pap Smear Juan-2 Qu[place]ñone[place] In Womens Screening, 0-201 Belén. Health [place], CervixEncounter for 7 700 PO Box suprvsn of normal Medical 1522, , first Center [place], [email or web address] weeks Yosvany Jansen, gestation of 120, [id number], [facility] [place], tel:[phone] , [place]. tel: [phone] Lloyd [place] Aug- Quiñonez In Womens 2-201 Belén. Health HANH, 4 700 [address], [address] [place], 120, [id number], [facility] [place], tel:[phone] , [place]. tel: [phone] [facility] Aug-0 Quiñ[place] In Womens 1-201 Belén. Health [place], 1 700 [address], [address] [place], 120, [id number], [facility] [place], tel:[phone] , [place]. tel: [phone] Family History Family Member Diagnosis Age At Onset No family history of Thrombosis No family history of Ovarian Cancer Mother Hypertension Maternal Grandmother Hypertension Maternal Grandfather Hypertension Maternal Grandmother Melanoma No family history of Breast Cancer No family history of Uterine Cancer Paternal Grandmother Cancer, colon Paternal Grandfather Cancer, colon Immunizations Vaccine Date Status Comments Unknown Payers Payer name Insurance type Covered democrat ID Authorization(s) [employer] Plan [place] - Medicaid MC [id number] Social History Type Description Quantity Date Captured Alcohol Use Details No Caffeine Use Details Unknown Tobacco Use Status Unknown Smoking Status Never smoker Vital Signs Date / Height Weight BMI Pulse Blood Temperature Respiratory Body Head BMI Time: Rate Pressure Rate Surface Circumference percentile Area Sep-19 35.4 -2017 5 11:20 kg/m AM eter (2) 187.50 36.0 106/78 -2017 lbs 1 mm[Hg] 11:24 kg/m AM eter (2) Chief Complaint And Reason For Visit Unknown Chief Complaint And Reason For Visit Reason For Referral Reason For Referral Unknown Plan Of Care Date Type Action Status Appointment Susanna Barrios BOOKED Future Order: Radiology Order Complete OB Ultrasound > 14 Ordered Weeks ([id number]) Date Type Problem Goal Intervention Status Start [...]
--- OUTSIDE RECORDS SUMMARY | 2017-11-06 06:08 | External Medical Summary | Continuity of Care Document ---
:1983 Author Organization [facility] [facility] [facility] Address [address] [place], [place] [address] Phone Support Name Relationship Address Phone Santos Barrios spouse [address] [phone] [place] [address] Allergies, Adverse Reactions, Alerts Substance Reaction Severity Status No Known Drug Allergies Unknown Active Medications Medication Instructions Dosage Effective Dates Status Comments (start - stop) Claritin 10 mg tablet take 1 tablet by oral 10 MG - Active route every day ORAL TABLET - Active Problems Condition Effective Dates (start - stop) Clinical Status Matern care for oth or susp poor fetl - gr, 2nd tri, unsp 15 weeks gestation of - Pap Smear Screening, Cervix - Encounter for suprvsn of normal - , first trimester 10 weeks gestation of - Oth related conditions, - first trimester Encounter for suprvsn of normal - , first trimester 11 weeks gestation of - OCP Surveillance - Active Procedures Procedure Date OB Visit No Charge Results Test Name Date and Time Measure Units Reference Range Abnormal Flag Comments Unknown Advance Directives Directive Yes / No Effective Date File Name Unknown Encounters Encounter Practice Location Reason(s) Diagnoses Date Provider Care Description For Visit Team Members Associates Lucas Matern care for oth Quiñonez In Women or susp poor fetl 4-201 Belén. Health [place], grth, 2nd tri, 7 700 [address], [email or web address] weeks Medical [place], [place], gestation of [place] , Yosvany Jansen [place] 120, tel:[phone] [place], [id number] , [place]. tel: [phone] Lloyd [place] Oth Juan-2 Qu[place] In Womens related conditions, 6-201 Belén. Health [place], first 7 700 [address], [place], for suprvsn of [place] [id number], normal , Yosvany Jansen first [email or web address] 120, tel:[phone] weeks gestation of [facility] [address] [place], [id number] , [place]. tel: [phone] Lloyd [place] Pap Smear Juan-2 Qu[place] In Womens Screening, 0-201 Belén. Health HANH, CervixEncounter for 7 [address], suprvsn of normal [place], [place], , first Center [id number], [email or web address] weeks [address] [facility] gestation of 120, tel:[phone], [phone] , [place]. tel: [phone] Lloyd [place] Aug-1 Qu[place] In Womens 2-201 Belén. Health HANH, 4 700 [address], [place], [place], [place] [id number], , [facility] [place] 120, tel:[phone], [id number] , [place]. tel: [phone] Lloyd [place] Aug-0 Quiñone[place] In Womens 1-201 Belén. Health HANH, 1 700 [address], [place], [place], Center [id number], , [facility] 120, tel:[phone], [id number] , [place]. tel: [phone] Family History Family Member Diagnosis Age At Onset No family history of Thrombosis No family history of Ovarian Cancer Mother Hypertension Maternal Grandmother Hypertension Maternal Grandfather Hypertension Maternal Grandmother Melanoma No family history of Breast Cancer No family history of Uterine Cancer Paternal Grandmother Cancer, colon Paternal Grandfather Cancer, colon Immunizations Vaccine Date Status Comments Unknown Payers Payer name Insurance type Covered libertarian ID Authorization(s) [employer] Plan Of [place] - Medicaid MC [id number] Social History Type Description Quantity Date Captured Alcohol Use Details No Caffeine Use Details Unknown Tobacco Use Status Unknown Smoking Status Never smoker Vital Signs Date / Height Weight BMI Pulse Blood Temperature Respiratory Body Head BMI Time: Rate Pressure Rate Surface Circumference percentile Area 182.50 35.0 123/85 2017 lbs 5 mm[Hg] 4:40 kg/m PM eter (2) Chief Complaint And Reason For Visit Unknown Chief Complaint And Reason For Visit Reason For Referral Reason For Referral Unknown Plan Of Care Date Type Action Status Appointment Susanna Barrios BOOKED Appointment Susanna Barrios BOOKED Date Type Problem Goal Intervention Status Start [...] domestic violence seat belt use genetic testing HIV and other routine tests risk factors identified by history anticipated course of care nutrition and weight gain counseling, special diet toxoplasmosis precautions (cats / raw meat) new ob handbook Zika virus assessment & precautions dentist
--- OUTSIDE RECORDS SUMMARY | 2017-11-06 06:08 | External Medical Summary | Continuity of Care Document ---
:1983 Author Organization [facility] Address [address] [place], [place] [address] Phone Support Name Relationship Address Phone Santos Barrios spouse [address] [phone] [place] [address] Allergies, Adverse Reactions, Alerts Substance Reaction Severity [...] For Visit Team Members Lloyd [place] Ot Aug-2 Quiñ[place]z In Womens related conditions, 3-201 Belén. Jessica SCHAFER, second trimesterLow 7 700 PO Box lying placenta NOS Medical 1522, or w/out [facility], hemorrhage, second Yosvany Jansen, [email or web address] weeks 120, , gestation of [facility] [place], tel:[phone] , [place]. tel: [phone] Lloyd [place] Matern care for oth Aug-2 Qu[place] In Womens Ultrasound or susp poor fetl 3-201 Belén. jax March, 2nd tri, 7 700 PO Box [email or web address] weeks Medical 1522, gestation of [facility] Yosvany Jansen, 120, , [facility] [place], tel:[phone] , [place]. tel: [phone] Lloyd [place] Aug-2 Qu[place] In Womens 2-201 Belén. Jessica SCHAFER, 7 700 [address] Medical [address], [place] Deshaun, Yosvany Jansen, 120, , [facility] [place], tel:[phone] , [place]. tel: [phone] Lloyd [place] Matern care for oth Yuriy-2 Quiñone[place] In Womens or susp poor fetl 4-201 Belén. jax March, 2nd tri, 7 700 PO Box [email or web address] weeks Medical 1522, gestation of [facility] Yosvany Jansen, 120, , [facility] [place], tel:[phone] , [place]. tel: [phone] Lloyd [place] [facility] Juan-2 Quiñonez In Womens related conditions, 6-201 Belén. Jessica SCHAFER, first 7 700 PO Box weeks gestation of Medical 1522, [facility], for suprvsn of Yosvany Jansen, normal , 120, , first trimester [facility] [place], tel:[phone] , [place]. tel: [phone] Lloyd [place] Pap Smear Juan- Quiñonez In Womens Screening, 0-201 Belén. Health HANH, CervixEncounter for 7 700 PO Box suprvsn of normal Medical 1522, , first [facility], [email or web address] weeks , Yosvany GU, gestation of 120, , [facility] [place], tel: [phone] , [place]. tel: [phone] Lloyd [place] May- Quiñonez In Womens 2-201 Belén. Jessica SCHAFER, 4 700 PO [address] Medical [address], [address] Deshaun, Yosvany GU, 120, , [facility] [place], tel:[phone] , [place]. tel: [phone] Lloyd [place] May- Quiñonez In Womens 1-201 Belén. Jessica SCHAFER, 1 700 [address] Medical [address], [address] Deshaun, Yosvany GU, 120, [id number], [facility] [place], tel:[phone] , [place]. tel: [phone] Family History Family Member Diagnosis Age At [...] [place] Plan [place] - Medicaid [place] [id number] Social History Type Description Quantity Date Captured [...] Complete OB Ultrasound > 14 Ordered Weeks (32630) Date Type Problem Goal Intervention Status Start [...]
--- OUTSIDE RECORDS SUMMARY | 2017-11-06 06:08 | External Medical Summary | Continuity of Care Document ---
:1983 Author Organization [facility] Address [address] [place], [place] [address] Phone Support Name Relationship Address Phone Santos Barrios spouse [address] [phone] [place] [address] Allergies, Adverse Reactions, Alerts Substance Reaction Severity Status No Known Drug Allergies Unknown Active Medications Medication Instructions Dosage Effective Dates Status Comments (start - stop) butalbital-acetami take 1 - 2 capsule Not Available - Active nophen-caffeine 50 by oral route every mg-300 mg-40 mg 6 hours as needed capsule not to exceed 6 capsules per 24hrs Prilosec OTC 20 mg take 1 Capsule by Not Available - Active tablet,delayed Oral route every release day Claritin 10 mg take 1 tablet by 10 MG - Active tablet oral route every day ORAL - Active TABLET Problems Condition Effective Dates (start - stop) Clinical Status Oth related conditions, - second trimester Low lying placenta NOS or w/out - hemorrhage, second trimester 19 weeks gestation of - Pap Smear [...] Description For Visit Team Members Lloyd [place] Oth May-2 Quiñonez In Womens related conditions, 3-201 Belén. Jessica SCHAFER second trimesterLow 7 700 PO Box lying placenta NOS Medical 1522, or w/out [facility], second Yosvany Jansen, [email or web address] weeks 120, , gestation of [facility] [place], tel:[phone] , [place]. tel: [phone] Lloyd [place] Matern care for oth May- Qu[place] In Womens Ultrasound or susp poor fetl 3-201 Belén. jax March, 2nd tri, 7 700 PO Box [email or web address] weeks Medical 1522, gestation of [facility] Yosvany Jansen, 120, , [facility] [place], tel:[phone] , [place]. tel:[phone] Lloyd [place] Matern care for oth Apr-2 Quiñone[place] In Womens or susp poor fetl 4-201 Belén. jax March, 2nd tri, 7 700 PO Box [email or web address] weeks Medical 1522, gestation of [facility], Yosvany Jansen, 120, [id number], [facility] [place], tel:[phone] , [place]. tel: [phone] Lloyd [place] Ot Juan-2 Quiñonez In Womens related conditions, 6-201 Belén. Jessica SCHAFER first [email or web address] 7 700 PO Box weeks gestation of Medical 1522, [facility], for suprvsn of Yosvany Jansen, normal , 120, , first trimester [facility] [place], tel:[phone] , [place]. tel:[phone] Lloyd [place] Pap Smear Juan-2 Quiñonez In Womens Screening, 0-201 Belén. Jessica SCHAFER CervixEncgabe for 7 700 PO Box suprvsn of normal Medical 1522, , first Center [place], [email or web address] weeks Yosvany Jansen, gestation of 120, , [facility] [place], tel:[phone] , [place]. tel: [phone] Lloyd [place] Aug- Quiñonez In Womens 2-201 Belén. Health [place], 4 700 PO [address] Medical [address], [place] [address] [place], 120, , [facility] [place], tel:[phone] , [place]. tel: [phone] [facility] Aug-0 Quiñonez In Womens 1-201 Belén. Health [place], 1 700 PO Box Medical [address], [place] [address] [place] [place], 120, , [facility] [place], tel:+ [phone] , [place]. tel: [phone] Family History Family Member Diagnosis Age At [...] [employer] Plan [place] - Medicaid MC [id number] Social History Type Description Quantity Date Captured Alcohol Use Details No Caffeine Use Details Unknown Tobacco Use Status Unknown Smoking Status Never smoker Vital Signs Date / Height Weight BMI Pulse Blood Temperature Respiratory Body Head BMI Time: Rate Pressure Rate Surface Circumference percentile Area 35.0 -2017 5 3:53 kg/m PM eter (2) 184.60 35.4 115/76 -2017 lbs 5 mm[Hg] 3:57 kg/m PM eter (2) Chief Complaint And Reason For Visit Unknown Chief Complaint And Reason For Visit Reason For Referral Reason For Referral Unknown Plan Of Care Date Type Action Status Appointment Susanna Barrios BOOKED Future Order: Radiology Order Complete OB Ultrasound > 14 Ordered Weeks ([id number]) Date Type Problem Goal Intervention Status Start [...]
--- OUTSIDE RECORDS SUMMARY | 2017-11-06 06:09 | External Medical Summary | Continuity of Care Document ---
:1985 Author Organization [facility] Allergies Active Description Code Type Severity Reaction Onset Reported/ Identified Relationship Clinical to Patient Status Yes No Known 32777 3 N/A N/A Drug 0 Allergies Medications Medication Packaging Start Date Stop Date Route Dosage Sig Tablet 07/15/2015 AVIANE 6 TAKE ONE TABLET BY MOUTH ONCE A DAY Tablet 07/27/2016 AVIANE 7 TAKE ONE TABLET BY MOUTH DAILY Capsule 06/19/2017 BUTALBITAL-ACETA 7 take 1 - 2 MINOPHEN-CAFFE capsule by oral route every 6 hours as needed not to exceed 6 capsules per 24hrs Capsule 09/17/2017 BUTALBITAL-ACETA take 1 - 2 MINOPHEN-CAFFE capsule by oral route every 6 hours as needed not to exceed 6 capsules per 24hrs Problems Date Dx Attending Type Code Diagnosis Diagnosed By Coded 07/15/2015 Belén Quiñonez V25.41 Oral Contraceptives, Surveillance 07/15/2015 Belén Quiñonez V72.31 Routine Gynecological Examination 06/19/2017 Belén Quiñonez O36.5920 Matern care for oth or susp poor fetl grth, 2nd tri, unsp 06/19/2017 Belén Quiñonez Z3A.19 19 weeks gestation of 08/13/2017 W V22.1 Supervision Of , Multigravida 09/25/2017 Belén Quiñonez O44.43 Low Lying Placenta Nos Or W/out Hemorrhage, Third Trimester 09/25/2017 Belén Quiñonez Z3A.33 33 weeks gestation of Procedures Code Description [place] [address] Venpnctr 05/28/2011 fngr/heel/ear stick routne 08212 OB Visit No 05/28/2011 Charge 34309 Obstetric 05/28/2011 profile 27951 HIV-1/HIV-2, 05/28/2011 single assay 48162 Cult, bactr, 05/28/2011 isaiah colonycnt, urine 11223 Cult, bactr, 05/28/2011 ident isolate, urine 96047 Infct 05/28/2011 antign, chlamydia trac, ampl 70473 Neisseria 05/28/2011 Gonorrhea, Amplified DNA 88722 Specimen 05/28/2011 handling/transport 65766 Ultrasnd 06/19/2017 exam of preg uterus, compl 82578 Immuniz 09/03/2017 admnin, 1 vac, sngl/combo 49992 TDAP VACCINE 09/03/2017 >7 IM 74877 Ultrasnd 09/25/2017 preg uterus, flwup/repeat Results There is no data. Encounters ACCT No. Visit Discharge Status Pt. Type Provider Facility Loc./Unit Complaint Date/Time [id number] 10/29/2017 10/29/2017 [facility] Out[facility] Quiñonez, 09:45:00 23:59:59 Belén Ghada [id number] 10/25/2017 10/25/2017 [facility] Outpatient Quñionez, 09:00:00 23:59:59 Belén Urrutia [id number] 10/16/2017 10/16/2017 [facility] Outpatient Qui[facility]onez, 08:30:00 23:59:59 Belén Ghada [id number] 10/11/2017 10/11/2017 C[facility] Outpatient Quiñonez, 10:15:00 23:59:59 Belén Ghada [id number] 09/25/2017 09/25/2017 CLS Outpatient Quiñonez, 15:30:00 23:59:59 Belén K [id number] 09/25/2017 09/25/2017 CLS Outpatient Quiñonez, 15:15:00 23:59:59 Belén Urrutia [id number] 09/24/2017 09/24/2017 CLS Outpatient Quiñonez, 09:36:00 23:59:59 Belén hGada [id number] 09/17/2017 09/17/2017 CLS Outpatient Quiñonez, 11:59:00 23:59:59 Belén Urrutia [id number] 09/03/2017 09/03/2017 CLS Outpatient Quiñonez, 11:15:00 23:59:59 Belén Urrutia [id number] 08/13/2017 08/13/2017 CLS Outpatient Quiñonez, 11:05:00 23:59:59 Belén Urrutia [id number] 07/16/2017 07/16/2017 CLS Outpatient Quiñonez, 11:15:00 23:59:59 Belén Urrutia [id number] 06/19/2017 06/19/2017 CLS Outpatient Quiñonez, 15:45:00 23:59:59 Belén Urrutia [id number] 06/19/2017 06/19/2017 CLS Outpatient Quiñonez, 15:15:00 23:59:59 Belén Urrutia [id number] 06/18/2017 06/18/2017 CLS Outpatient Quiñonez, 10:44:00 23:59:59 Belén Urrutia [id number] 05/20/2017 05/20/2017 CLS Outpatient Quiñonez, 16:15:00 23:59:59 Belén Urrutia [id number] 04/22/2017 04/22/2017 CLS Outpatient Quiñonez, 16:00:00 23:59:59 Belén Urrutia [id number] 04/22/2017 04/22/2017 CLS Outpatient Quiñonez, 15:15:00 23:59:59 Belén Urrutia [id number] 04/16/2017 04/16/2017 CLS Outpatient Quiñonez, 10:00:00 23:59:59 Belén Urrutia [id number] 07/27/2016 07/27/2016 CLS Outpatient Quiñonez, 09:32:00 23:59:59 Belén Urrutia [id number] 07/18/2015 07/18/2015 CLS Outpatient José Miguel, 14:08:00 23:59:59 Christopher Bowen [id number] 07/15/2015 07/15/2015 CLS Outpatient Quiñonez, 10:00:00 23:59:59 Belén Urrutia [id number] 05/28/2011 Document 14:00:00 Registration
[2017-11-06] MEDS: LR 1,000 ML IV PRN ×4 (06:41→18:57)
[2017-11-06] MEDS: D5LR 1,000 ML IV PRN ×2 (06:42→16:17)
[2017-11-06 06:53] VITALS: BMI 37.2
[2017-11-06] MEDS ORDERED: AMPICILLIN 2 GM in NS 100 ML IV ONE (07:00)
--- NOTE | 2017-11-06 08:44 | Anesthesia Preoperative Report ---
Anesthesia Epidural/Spinal Rec - Date and Time Date: 11/06/17 Procedure: Labor Epidural - Vital Signs Vital Signs: Temperature 97.8 F 11/06/17 06:30 Pulse Rate 100 11/06/17 06:30 Respiratory Rate 20 11/06/17 06:30 Blood Pressure 122/85 11/06/17 06:30 Pulse Oximetry 99 11/06/17 06:30 /Para: P:2 - Medictaions & Allergies Inpatient Medications: Current Medications Acetaminophen (Tylenol) 500 - 1,000 mg PO Q4H PRN PRN Reason: Pain Al Hydroxide/Mg Hydroxide (Maalox Plus) 30 ml PO Q3H PRN PRN Reason: Indigestion Calcium Carbonate (Tums) 500 - 1,000 mg PO Q2H PRN PRN Reason: Indigestion Carboprost Tromethamine (Hemabate) 250 mcg IM O PRN PRN Reason: .Downtime Ampicillin Sodium 1 gm/ Sodium (Chloride) 100 mls @ 200 mls/hr IV Q4H LLOYD Dextrose/Lactated Ringer's (Dextrose 5%-Lactated Ringers) 1,000 mls @ 125 mls/ hr IV .Q8H PRN PRN Reason: Labor Last Admin: 11/06/17 06:42 Dose: 125 mls/hr Lactated Ringer's (Lactated Ringers) 1,000 mls @ 999 mls/hr IV .Q1H1M PRN Last Admin: 11/06/17 06:41 Dose: 999 mls/hr Oxytocin (Pitocin Drip) 30 unit in 500 mls @ 2 mls/hr IV .Q24H PRN; Protocol PRN Reason: Induction/Augmentation Last Admin: 11/06/17 06:42 Dose: 2 mls/hr Lidocaine HCl (Xylocaine-Mpf 1% Vial) 0.2 mg ID O PRN PRN Reason: IV Start Methylergonovine Maleate (Methergine) 0.2 mg IM O PRN Misoprostol (Cytotec) 800 mcg VT ONCE PRN Allergies/Adverse Reactions: Allergies Allergy/AdvReac Type Severity Reaction Status Date / Time No Known Drug Allergies Allergy Unknown Verified 12/29/16 18:17 - Home Medications Home Medications: Home Medications Medication Instructions Recorded Confirmed Type Vits W-Ca,Fe,Fa(<1MG) 1 tab PO #0 12/19/11 History ( Vitamins) Loratadine/Pseudoephedrine 1 tab PO BID #40 tab 12/29/16 History [Claritin-D 12 Hour Tablet] Txjced-Fajtbcgb-Kjgw 50-300-40 10/24/17 History - Medical History Respiratory: DENIES: Asthma Cardiovascular: DENIES: Angina Gastrointestional: Reports: Gastroesophageal Reflux Disease (well controlled with meds) Other History: Reports: Now - Surgical History Reproductive Surgery/Treatment: DENIES: Section Anesthesia Reactions: None Hx Family Anesthesia Reaction: No History of Motion Sickness: No - Social History Smoking Status: Never smoker Second Hand Exposure: No Substance Use Type: does not use Alcohol Intake Frequency: does not drink - Pertinent Findings Lab Data: CBC and BMP 11/06/17 06:20 - Physical Exam Respiratory Exam: lungs clear, bilateral breath sounds equal Cardiovascular Exam: regular rate and rhythm - Airway Assessment Mallampati Score: II TMD: 3 Fingerbreadths Neck Extension: good Overall Assessment: may be difficult mask vent, may be difficult intubation - ASA ASA Score: 2 - Discussion Discussion: Discussed risks/options/alternatives of anesthesia and questions answered. Patient consents. Nursing pain assessment noted. Anesthesia Discussion: spouse, parent (mother) Attestation Statement: Prior to the delivery of any anesthetic medication, I examined the patient, developed the plan, obtained the patient's consent and discussed the risk and benefits of the procedure with the patient/guardian.
[2017-11-06] MEDS ORDERED: NALOXONE 0.4 MG/ML INJECTION IVP PRN (09:55)
[2017-11-06] MEDS ORDERED: ONDANSETRON 4 MG/2 ML INJECTION IVP PRN (09:55)
[2017-11-06] MEDS ORDERED: ROPIVACAINE 1% 10MG/ML INJ 200 MG, SUFentanil 50 MCG in NS 100 ML EPI PRN (09:55)
[2017-11-06] MEDS ORDERED: DiphenhydrAMINE 50 MG/ML INJECTION IVP PRN (09:55)
[2017-11-06] MEDS: AMPICILLIN 1 GM in NS 100 ML IV SCH ×2 (11:25→15:23)
[2017-11-06] MEDS ORDERED: CITRIC ACID/SODIUM CITRATE 30ml PO ONE (18:56)
[2017-11-06] MEDS ORDERED: FAMOTIDINE PB 20 MG/50 ML BAG IV ONE (18:56)
[2017-11-06] MEDS ORDERED: CEFAZOLIN PREMIX (MC ONLY) 2 GM/50 ML BAG IV ONE (18:56)
[2017-11-06] MEDS ORDERED: AZITHROMYCIN IV 500 MG in NS 250ml 250 ML IV SCH (19:00)
[2017-11-06] MEDS ORDERED: LIDOCAINE 2%/EPI 1:200,000 20ml SDV PF ONE (19:03)
[2017-11-06] MEDS ORDERED: ONDANSETRON 4 MG/2 ML INJECTION ONE (19:03)
[2017-11-06] MEDS ORDERED: SODIUM BICARBONATE 8.4% (50mEq/50ml) VIAL IV ONE (19:03)
[2017-11-06] MEDS ORDERED: MORPHINE SULFATE PF 5mg/10ml INJ (Duramorph) ONE (19:04)
[2017-11-06] MEDS ORDERED: TRANEXAMIC ACID 1,000 MG in NS 100 ML IV ONE ×2 (19:44→20:49)
[2017-11-06] MEDS ORDERED: OXYTOCIN BOLUS BAG 30 UNIT/500 ML ML IV SCH ×2 (20:08→21:00)
[2017-11-06] MEDS ORDERED: MIDAZOLAM 2mg/2ml INJECTION ONE (20:12)
[2017-11-06] MEDS ORDERED: SIMETHICONE 80 MG CHEWABLE TABLET PO PRN (20:54)
[2017-11-06] MEDS ORDERED: HYDROCORTISONE 2.5% CREAM 30gm RECTALLY PRN (20:54)
[2017-11-06] MEDS ORDERED: DiphenhydrAMINE 25 MG CAPSULE PO PRN (20:54)
[2017-11-06] MEDS ORDERED: OXYTOCIN DRIP 30 UNIT/500 ML ML IV SCH (21:00)
[2017-11-06] MEDS ORDERED: SALINE FLUSH 10ml SYRINGE ONE (21:01)
[2017-11-06] MEDS: D5LR 1,000 ML IV SCH (21:17)
[2017-11-06] MEDS: NS 1,000 ML IV SCH (21:30)
[2017-11-06] MEDS: SIMETHICONE 80 MG CHEWABLE TABLET PO SCH (23:20)
[2017-11-06] MEDS ORDERED: NALBUPHINE 10 MG/ML INJECTION IVP PRN (23:42)
[2017-11-06] MEDS ORDERED: NALOXONE 2 MG/2 ML INJECTION PFS IVP PRN (23:42)
[2017-11-06] MEDS ORDERED: METOCLOPRAMIDE 10mg/2ml INJECTION IVP PRN (23:42)
[2017-11-06] MEDS: IBUPROFEN 800 MG TABLET PO PRN (23:54)
[2017-11-06] MEDS: ONDANSETRON 4 MG/2 ML INJECTION IVP PRN (23:59)
[2017-11-07] MEDS: NS 1,000 ML IV SCH (00:10)
[2017-11-07] MEDS: AMPICILLIN 1 GM in NS 100 ML IV SCH (01:31)
[2017-11-07] MEDS ORDERED: LR 1,000 ML IV SCH (04:15)
[2017-11-07] MEDS: D5LR 1,000 ML IV SCH ×4 (04:34→17:42)
[2017-11-07] MEDS: ONDANSETRON 4 MG/2 ML INJECTION IVP PRN (07:46)
--- NOTE | 2017-11-07 08:02 | OB/GYN Progress Note ---
OB-PP Progress Note - General PPD1 Maternal Group B Strep: Positive Maternal blood type: O+ Maternal Rubella Status: Immune - Subjective Date: 11/07/17 Lochia: Minimal Pain: controlled Voiding: restrepo still in place Nausea or Vomiting Present: Yes (Improved) - Objective Vital Signs: Last Vital Signs Temp 97.8 F 11/07/17 05:40 Pulse 81 11/07/17 05:40 Resp 16 11/07/17 05:40 BP 112/74 11/07/17 05:40 Pulse Ox 100 11/07/17 05:40 Urine Output: adequate (30 ml/hr) General: alert and oriented (Pale) Abdomen: fundus firm, non-tender, soft, distended (Mildly) Incision: clean, dry, intact Extremities: non-tender Laboratory: Laboratory Results - last 24 hr 11/06/17 11/06/17 11/06/17 06:20 20:59 21:13 WBC 17.3 H D RBC 2.49 L Hgb 7.0 L D Hct 22.2 L D MCV 89.2 MCH 28.1 MCHC 31.5 RDW Std Deviation 46.4 Plt Count 155 MPV 11.4 Blood Type O Positive Antibody Screen Negative Crossmatch (AHG) See Detail Blood Product Request 1 unit pc issued 11/07/17 11/07/17 01:07 07:06 WBC 20.1 H 19.4 H RBC 3.24 L 3.14 L Hgb 9.3 L D 8.8 L Hct 28.0 L D 27.3 L MCV 86.4 86.9 MCH 28.7 28.0 MCHC 33.2 32.2 RDW Std Deviation 44.4 45.2 Plt Count 194 188 MPV 11.4 11.7 Blood Type Antibody Screen Crossmatch (AHG) Blood Product Request - Assessment Assessment: Primary C/S, PP Hemorrhage (s/p 1 unit of RBCs) - Plan Due the extensive suturing of the right incision/broad ligament, we will evaluate her right ureter to rule out an injury. Dr. Brothers requested a CT with IV contrast. Questions answered.
[2017-11-07] MEDS: IBUPROFEN 800 MG TABLET PO PRN ×2 (08:13→16:27)
[2017-11-07] MEDS ORDERED: IOHEXOL 300mg/ml 100ml INJECTION ONE (08:27)
[2017-11-07] MEDS ORDERED: NS 100 ML ONE (08:27)
[2017-11-07] MEDS ORDERED: SALINE FLUSH 10ml SYRINGE ONE (08:27)
[2017-11-07] MEDS: DOCUSATE CALCIUM 240 MG CAPSULE PO SCH (09:00)
--- NOTE | 2017-11-07 10:31 | CT Scan Report ---
Indication: r/o R ureter injury from extensive suturing at c/s PROCEDURE: CT renal wo/w con: Encounter: Initial Comparison: None Technique: Axial CT images were performed through the abdomen and pelvis before and after the administration of intravenous contrast. Delayed postcontrast images were also performed. Coronal and sagittal 2-dimensional reformats. Automated Exposure Control and Iterative Reconstruction dose reducing techniques were utilized. Contrast: Omnipaque 300 100 mL Findings: Mild atelectasis in both lung bases. Noncontrast images of the kidneys show no renal or ureteral stone disease. There is a markedly enlarged post gravid uterus seen with a few foci of gas in the lower uterine segment. There is gas seen in the anterior pelvic soft tissues and rectus sheaths bilaterally consistent with the recent section. There is a small amount of free pelvic fluid and hemorrhage also present. The bladder is decompressed with a Pal catheter. Postcontrast images show normal enhancement of the liver. No bile duct dilatation. The gallbladder is unremarkable. The spleen, pancreas and adrenal glands are within normal limits. The kidneys enhance normally. No hydronephrosis or renal mass. No evidence of a bowel obstruction.. Bone windows show no acute findings. Delayed postcontrast images show symmetric excretion of contrast from both renal collecting systems. There is no extravasation of contrast. The proximal to mid ureters are well-opacified bilaterally without evidence of ureteral leak. The ureters are compressed by the enlarged uterus and there is minimal visible contrast present within the distal portion of both ureters. However there is contrast material seen within the bladder and a repeat delayed scan showed progressive filling of the bladder with no evidence of contrast extravasation. Impression: 1. No CT evidence of ureteral obstruction or leak. 2. Postoperative changes from recent section. 3. Bibasilar atelectasis. .
--- NOTE | 2017-11-07 11:01 | Anesthesia Postoperative Note ---
- Date and Time Date: 11/07/17 Time: 11:00 - Status Patient Participated in Evaluation: Patient Participated in Person Vital Signs: Temperature 97.8 F 11/07/17 05:40 Pulse Rate 81 11/07/17 05:40 Respiratory Rate 16 11/07/17 05:40 Blood Pressure 112/74 11/07/17 05:40 Pulse Oximetry 100 11/07/17 05:40 Respiratory Function: Airway Patent Mental Status: Alert and Oriented Pain Intensity: 3 Hydration: Nausea Complications During Recover: None Apparent - Follow-Up Instructions Instructions: Per Surgeon
[2017-11-07] MEDS: SIMETHICONE 80 MG CHEWABLE TABLET PO SCH ×3 (12:37→18:43)
[2017-11-07] MEDS: HYDROCODONE/APAP 5mg/325mg TABLET PO PRN ×3 (12:44→20:12)
--- NOTE | 2017-11-07 12:47 | Progress Note ---
OB PP Progress Note Free Text - Date Date: 11/07/17 - Progress Note Progress Note: Starting to feel better. The nausea resolved and she's keeping some PO down. Her UOP has increased substantially. Her CT showed normal filling of both ureters into the bladder. There was suggestion of atelectasis, so she will start a spirometer. Start Fe for the anemia. DC the restrepo when she is able to ambulate.
--- NOTE | 2017-11-07 14:30 | Operative Note ---
DATE OF PROCEDURE 11/06/2017 PREOPERATIVE DIAGNOSES 1. 32-year-old 4, para 2 at 39 weeks 3 days gestational age. 2. Failure to progress. POSTOPERATIVE DIAGNOSES 1. 32-year-old 4, para 2 at 39 weeks 3 days gestational age. 2. Failure to progress. 3. hemorrhage. 4. Possible endometriosis. PROCEDURE Primary low transverse section. SURGEON Dr. Belén Quiñonez QUILL WORKER Dr. Ermelinda King ANESTHESIA Epidural by Michael White CRNA COMPLICATIONS None. EBL 2000 mL. FINDINGS Viable female infant, cephalic OT position, clear fluids, Apgars 8/9, weight 3738 g, name "[place]." The superior and posterior uterus had a possible endometriosis appearance to it. Normal-appearing adnexa. INDICATIONS Susanna was brought in for a Pitocin induction due to suspected macrosomia. She was started on antibiotics for her group B strep. Her membranes were ruptured artificially, returning clear fluids. She received an epidural. When her cervix was not changing well I placed an IUPC to document adequate contractions. She progressed much slower over the course of the day than what I was expecting for a G4, P2. Baby never descended past 0 station. Due to the prolonged labor and concern about turning into a shoulder dystocia we discussed continuing the induction versus having a primary . She was exhausted at this point and desired a . PROCEDURE The patient was taken to the operating room where her epidural was brought up to adequate surgical levels. She already had a Pal catheter in place. Her IUPC was removed. She was prepared and draped in normal sterile fashion. A Pfannenstiel skin incision was made and carried down to the fascia. The fascia was incised in the midline and extended laterally with the Gray scissors. The fascia was elevated and the underlying rectus muscles were dissected off. The peritoneum was entered bluntly and extended superiorly and inferiorly with good visualization of the bladder. The bladder blade was inserted. She had a large vein in the midline of the lower uterine segment that split into a Y-shape as it went superiorly. Bladder flap was created and the bladder blade was reinserted. We tried to position the incision on the uterus to avoid this large vessel. The lower uterine segment was incised in a transverse fashion and bluntly extended. The 's head was wedged deeply in the pelvis. It was delivered atraumatically. The nose and mouth were suctioned. The cord was clamped and cut. The was handed to the waiting NRP team. The placenta delivered spontaneously. The uterus was cleared of all clots and debris. The uterus was bleeding excessively. Two ring clamps were placed on the right edge of the uterine incision due to the bleeding. She was given a dose of the TXA. The left half of the uterine incision was closed with running locked Monocryl. We then started repairing the extension on the right side of the uterus. This was only closed partially because we had several bleeding uterine vessels that were bleeding copiously. Multiple times we placed a right angle and either did a free tie or a stick tie of 2-0 chromic to tie off the bleeding vessels individually. She was still bleeding excessively in the right broad ligament. With a finger behind the uterus to help delineate the anatomy this area was closed with two layers to finally stop the bleeding from this right side. The remainder of the uterus was closed with 0-monocryl. The serosal edges were cauterized for hemostasis. Then with gentle dabbing of the sponge, the large vessel in the midportion of the lower uterine segment started bleeding copiously. We placed several [id number]-jaapxs around this for hemostasis. The uterus was returned to the abdomen. The gutters were cleared of all clots and debris. The uterine incision was inspected again and the midline vessel was bleeding copiously again. We attempted to put a ttdrou-gn-[id number] in situ but that did not help. The uterus was exteriorized. We placed two more figure-of- eights and that bleeding finally subsided. The uterus was once again returned to the abdomen. This time the uterus maintained good hemostasis. The peritoneum was closed with running 2-0 Vicryl. Hemostasis was obtained in the rectus muscles with the cautery. The fascia was closed with running 0- Vicryl. Hemostasis was obtained in the subcutaneous tissue with the cautery. Graciela's fascia was closed with running 2-0 chromic. The skin was closed with 4 -0 Vicryl in a subcuticular manner. Steri-Strips were placed. Sponge, sharp and instrument counts were correct. The patient was given a second dose of TXA in the operating room. A hemoglobin in the operating room was 7 so we ordered a unit of blood to be given. Mom and baby tolerated the delivery well. MTDD
[2017-11-07] MEDS: IRON POLYSACCHARIDE COMPLEX 150 MG CAPSULE PO SCH (18:43)
[2017-11-07] MEDS ORDERED: NEOMYCIN/POLYMYXIN/BACITRACIN OINT PACKET TP PRN (23:34)
[2017-11-08] MEDS: SIMETHICONE 80 MG CHEWABLE TABLET PO SCH ×4 (00:03→21:35)
[2017-11-08] MEDS: IBUPROFEN 800 MG TABLET PO PRN ×3 (00:04→16:44)
[2017-11-08] MEDS: HYDROCODONE/APAP 5mg/325mg TABLET PO PRN ×6 (00:04→21:35)
--- NOTE | 2017-11-08 07:58 | OB/GYN Progress Note ---
OB-PP Progress Note - General PPD2 Maternal Group B Strep: Positive Maternal blood type: O+ Maternal Rubella Status: Immune - Subjective Date: 11/08/17 Lochia: Minimal Pain: controlled Voiding: voiding Nausea or Vomiting Present: No - Objective Vital Signs: Last Vital Signs Temp 97.8 F 11/08/17 04:00 Pulse 87 11/08/17 04:00 Resp 16 11/08/17 04:00 BP 110/78 11/08/17 04:00 Pulse Ox 100 11/08/17 04:00 Urine Output: good General: alert and oriented Abdomen: fundus firm, non-tender, soft, non-distended Incision: clean, dry, intact Extremities: non-tender Laboratory: Laboratory Results - last 24 hr 11/07/17 08:23 Turbidity < 20 Sodium 140 Potassium 3.9 Chloride 111 H Carbon Dioxide 22 Anion Gap 7 BUN 6.0 L Creatinine 0.7 GFR Calculation 96 BUN/Creatinine Ratio 9 Glucose 127 H Calculated Osmolality 269 Calcium 7.9 L Total Bilirubin 0.30 Icterus Index < 2 AST 20 ALT 17 Alkaline Phosphatase 77 Total Protein 5.3 L Albumin 2.5 L Globulin 2.8 Albumin/Globulin Ratio 0.9 L Specimen Hemolysis < 15 - Assessment Assessment: Primary C/S, Anemia (Acute on chronic) - Plan Plan: routine care, iron ANUPAMA restrepo.
[2017-11-08] MEDS ORDERED: PRENATAL VITAMIN TABLET PO SCH (09:00)
[2017-11-08] MEDS: DOCUSATE CALCIUM 240 MG CAPSULE PO SCH (09:07)
[2017-11-08] MEDS: IRON POLYSACCHARIDE COMPLEX 150 MG CAPSULE PO SCH (13:42)
[2017-11-08 23:57] VITALS: TEMP 98
[2017-11-09] MEDS: SIMETHICONE 80 MG CHEWABLE TABLET PO SCH ×2 (01:17→11:10)
[2017-11-09] MEDS: IBUPROFEN 800 MG TABLET PO PRN (02:41)
[2017-11-09] MEDS: HYDROCODONE/APAP 5mg/325mg TABLET PO PRN ×2 (02:42→11:10)
[2017-11-09 08:40] VITALS: BP 124/93; PULSE 92; RESP 18; O2SAT 98
--- NOTE | 2017-11-09 08:57 | OB/GYN Progress Note ---
OB-PP Progress Note - General PPD3 Maternal Group B Strep: Positive Maternal blood type: O+ Maternal Rubella Status: Immune - Subjective Date: 11/09/17 Lochia: Minimal Pain: controlled Voiding: voiding - Objective Vital Signs: Last Vital Signs Temp 98.0 F 11/09/17 08:10 Pulse 92 11/09/17 08:10 Resp 18 11/09/17 08:10 BP 124/93 H 11/09/17 08:10 Pulse Ox 98 11/09/17 08:10 General: alert and oriented Abdomen: fundus firm, non-tender Incision: normal, dry, intact Extremities: non-tender Edema: none - Assessment Assessment: Primary C/S, PP Hemorrhage - Plan Plan: routine care, discharge home, continue PNV
[2017-11-09] MEDS: DOCUSATE CALCIUM 240 MG CAPSULE PO SCH (11:10)
[2017-11-09] MEDS: IRON POLYSACCHARIDE COMPLEX 150 MG CAPSULE PO SCH (11:11)
== END 2017-11-09 12:27 | disposition home or self-care (01) | DRG 765 ==
LOC: MC 06:02
PROVIDERS: ADMIT Obstetrics & Gynecology; ATTEND Obstetrics & Gynecology